=== PATIENT | male | born 1955 | race Caucasian/White ===

== ENCOUNTER → 2019-04-09 | Day surgery (SDC) | payer OTHER ==
[2019-04-04 09:35] LABS: BASOPHILS # (AUTO) 0.1 (0.0-0.1); BASOPHILS % 0.9 % (0.0-1.0); EOSINOPHILS # (AUTO) 0.6 (0.0-0.4); EOSINOPHILS % 9.2 % (0.0-6.0); HEMATOCRIT 41.7 % (38.2-49.6); HEMOGLOBIN 13.4 g/dL (14.0-18.0); MEAN CORPUSCULAR HEMOGLOBIN 29.5 pg (28-32); MEAN CORPUSCULAR HGB CONC 32.1 g/dL (31-35); MEAN CORPUSCULAR VOLUME 91.9 fL (81-99); MONOCYTES # (AUTO) 0.7 (0.2-0.8); MONOCYTES % 10.4 % (4.4-11.3); NEUTROPHILS # (AUTO) 4.2 (2.1-6.9); NEUTROPHILS % 64.2 % (38.7-80.0); PLATELET COUNT 281 x10e3/uL (140-360); RED BLOOD COUNT 4.54 x10e6/uL (4.3-5.7); RED CELL DISTRIBUTION WIDTH 14.9 % (11.7-14.4)
[~2019-04-09] MED LIST: COMBIVENT RESPIM4 GM NEB; FENTANYL CITRATE/PF 100MCG/2 ML INJ ONE; GLUCAGON FOR INJ 1 MG VIAL ONE; HYOSCYAMINE 0.125 MG TAB ONE; MIDAZOLAM HCL 2 MG/2 ML VIAL ONE; PROPOFOL IV EMULSION 10 MG/ML 50 ML VIAL ONE; SIMVASTATIN20 MG PO; SYMBICORT 16010.2 GM INH; VENTOLIN HFA18 GM INH
--- OUTSIDE RECORDS SUMMARY | 2019-04-09 06:11 | XMS REPORT ---
Author [facility] Address Unknown Phone Unavailable Care Team Providers Care Drill Sharpener Name Role Phone Unavailable Unavailable Payers Payer Name Policy Type Policy Number Effective Date Expiration Date Problems This patient has no known problems. Allergies, Adverse Reactions, Alerts Allergy Name Allergy Type Status Severity Reaction(s) Onset Date Inactive Date Treating Clinician Comments cat dander DA Active U 2018-12-04 00:00:00 cat dander DA Active U 2018-06-04 00:00:00 cat dander DA Active U 2018-05-21 00:00:00 No Known Allergies DA Active U 2018-05-20 00:00:00 No Known Allergies DA Active U 2018-04-23 00:00:00 No Known Allergies DA Active U 2017-06-30 00:00:00 Medications This patient has no known medications. Encounters Start Date/Time End Date/Time Encounter Type Admission Type Attending Clinicians Care Facility Care Department Encounter ID 2018-07-11 11:18:00 2018-07-11 11:18:00 Outpatient [id number] Results Test Description Test Time Test Comments Text Results Atomic Results Result Comments [facility] 2018-12-07 16:29:00 RUN DATE: 12/07/18 [facility] PAGE 1 RUN TIME: 1629 Specimen Inquiry RUN USER: INTERFACE PATIENT: LIZA GONZALEZ LOC: MAREK U #: [id number] AGE/SX: 63/M ROOM: MAREK RE12/06/18ANAI DR: Eduardo Hubbard MD : 54 BED: 8 DIS: 12/07/18 STATUS: DIS IN TLOC: SPEC #: [id number] RECD: 12/06/18 STATUS: LATOSHA REQ #: [id number] GRETA: 12/06/18-[address]: Tristan Matamoros MD ENTERED: 12/06/18 SP TYPE: GALLBLADD OTHR DR: Tristan Matamoros MD, Milton E DOORDERED: GROSS COPIES TO: Tristan Matamoros MD [address] [place] [address] Luis Miguel Barroso DO [address] [place] [address] MARKERS: ABNORMAL TISSUE, GALLBLADDER PROCEDURES: GROSS (12/07/18-145) TISSUES: GALLBLADDER, NOS CLINICAL HISTORY COLLECTION DATE: 12/06/2018 CHOLECYSTITIS FINAL DIAGNOSIS Gallbladder, cholecystectomy: CHOLELITHIASIS ACUTE AND CHRONIC CHOLECYSTITIS REACTIVE LYMPH NODE NEGATIVE FOR MALIGNANCY DMW/ A 30244 CONTINUED ON NEXT PAGE RUN DATE: 12/07/18 [facility] PAGE 2 RUN TIME: 1629 Specimen Inquiry RUN USER: INTERFACE SPEC #: [id number] PATIENT: LISALIZA #[id number] (Continued) MACROSCOPIC The specimen is received in formalin, labeled with the patient's name and identified as "gallbladder". It consists of a smooth pink- rawls serosal surface. The specimen measures 5.5 cm in length with a diameter up to 2.5 cm. A 1.6 segment of duct is clamped. A pink-rawls lymph node is present at the neck of the gallbladder. The lumen contains green bile and a single green mixed composition stone measuring 0.7 cm in diameter. The mucosa l surface is rawls and smooth. The gallbladder wall measures up to 0.2 cm in thickness. No nodules or masses are identified. Intelligence Consultant tissue is submitted in a single cassette. GROSS PERFORMED AT [facility] [address] [place] [address] (p)[phone] MICROSCOPIC All of the stains, including any controls performed, stain appropriately. MICROSCOPIC PERFORMED AT [facility] [address] [place] [address] [phone])[phone] PERFORMING SITE Diagnosis performed at: [facility], [address] [address] Signed SIGNATURE ON FILE Anjali George MD 12/07/18 1629 END OF REPORT TROPONIN-I 2018-12-04 14:31:00 TROPONIN-I (test code=TROPI) <0.015 ng/mL 0-0.045 COMMENTS TO TIPPING MACHINE OPERATOR: COLLECT 3 HOURS AFTER PREVIOUS SAMPLE- US ABDOMEN [id number] 09:52:00 Name: LIZA GONZALEZ [facility] : 1955 Age/S: 63 / M [address] Unit #: [id number] Loc: [place] [address] Phys: MarvinSourav Ruel IRWIN Acct: [id number] Dis Date: Status: ADM IN PHONE #: [phone] Exam Date: 12/04/2018 0910 FAX #: [phone] Reason: abd pain/n/v EXAMS: CPT CODE: [id number] US ABDOMEN LTD 89508 REASON FOR EXAM: abd pain/n/v EXAM ORDER DATE: 12/04/2018 7:09 AM Attending Octavio: Sourav Wong DO PROCEDURE: - US ABDOMEN LTD Technique: Grayscale and color Doppler images of the right-upper quadrant of the abdomen. Comparison: CT of the abdomen and pelvis earlier today at 8:12 AM FINDINGS: Aorta and IVC: Visualized portions are within normal limits. Atherosclerotic disease is seen throughout the visualized portions of the aorta. There is an infrarenal ab dominal aortic aneurysm, also seen on the prior CT scan, that measures up to 4.4 x 4.2 cm cross-sectionally on this study. The length of the aneurys mal segment measures 9.7 cm. Liver: Size: 15.9 cm crank hand niocaudally Parenchyma and contour: Smooth contour. Normal echogenicity. Cysts and/or masses: None. Intrahepatic bile ducts: No intra hepatic biliary ductal dilation Common bile duct: 4.6 mm in diamet er. No echogenic filling defects in visualized duct. Gallbl adder: Stones/sludge: Intraluminal stone is present within the neck. Wall: 4.0 mm in thickness. Hyperemic. No discontinuity is seen. Sonogra phic Fry's sign: Positive Portal vein: Portal vein caliber is w ithin normal limits. Portal vein is patent with hepatopetal flow. Pancreas: Not clearly visualized. Right kidney: paren chyma echogenicity: Normal echogenicity PAGE 1 Signed Report (CONTINUED) [facility] 1955 Age/S: 63 / M [address] Unit #: [id number] Loc: [place] [address] Phys: MarvinSourav Ruel IRWIN Acct: [id number] Dis Date: Status: ADM IN PHONE #: [phone] Exam Date: 12/04/2018909 FAX #: [phone] Reason: abd pain/n/v EXAMS: CPT CODE: [id number] ABDOMEN [facility] [address] <Continued> size: 10.3 x 5.5 x 5.1 cm stones: none cysts/masses: none hydronephrosis: none Ascites/pleural effusions: None IMPRESSION: Cholelithiasis with thickened hyperemic gallbladder wall and positive sonographic Fry sign. These findings are consistent with acute calculus cholecystitis. Infrarenal abdominal aortic aneurysm with dimensions as described above. This is also seen on the prior CT scan. One-year follow-up is recommended. at 0952 Reported and signed by: Holden Stanford MD CC: Eduardo Hubbard MD; Luis Miguel Barroso; Sourav Wong DO Technologist: CLARITA THACKER RT(R),MAGALY Trnnhb Date/Time: 12/04/2018 (951) [id number].[email or web address].RR31 Orig Print D/T: S: 12/04/2018 (0955) Probe: PAGE 2 Signed Report [id number] 09:36:00* Test Item Value Reference Range Comments TROPONIN-I (test code=TROPI) <0.015 ng/mL 0-0.045 COMMENTS TO TIPPING MACHINE OPERATOR: COLLECT 3 HOURS AFTER PREVIOUS SAMPLE- CT ABD PELVIS W WO [id number] 08:37:00 Name: LIZA GONZALEZ [facility] : 1955 Age/S: 63 / M [address] [facility] Unit #: [id number] Loc: [place] [address] Phys: Sima Fletcher NP Acct: [id number] Dis Date: Status: ADM IN PHONE #: [phone] Exam Date: 12/04/2018819 FAX #: [phone] Reason: ABDOMINAL PAIN EXAMS: CPT CODE: [id number] CT ABD [place]ELVIS W [place] CONT [address]994 REASON FOR EXAM: ABDOMINAL PAIN EXAM ORDER DATE: 12/04/2018 7:23 AM Ordering M.D.: Sima Fletcher NP PROCEDURE: - CT ABD PELVIS W WO CONT pre and postcontrast axial CT images were acquired through the abdomen/pelvis at 5 mm intervals. Sagittal and coronal reformatted images were generated. Automated exposure control was utilized for this reduction. Phases of contrast: venous and delayed COMPARISON: CT of the chest, abdomen, and pelvis May 21, 2018 FINDINGS: Visualized thorax: There is mild subsegmental atelectasis in the middle lobe and right lower lobe. Visualized cardiac chambers are within normal limits. Hepatobiliary system: Calcified stone measuring 1 cm is s een in the neck of the gallbladder. Trace pericholecystic fluid is present . Pancreas: Normal Spleen: Normal Adre nal glands: Normal Genitourinary system: Prostate gland is enlarge d. Kidneys and ureters and bladder are within normal limits. Gastrointestinal tract and appendix: Stomach and small bowel are within n ormal limits. There is a heavy colonic stool burden. Appendix is not visua lized. No inflammatory changes are seen in the region of the appendix. Abdominal vascular structures: Infrarenal abdominal aortic aneurysm measuring up to 4.4 x 4.1 cm in size. These measurements are minimally larger from the previous CT scan where this aneurysm measured up to 3.9 x 4.1 cm in size although these differences may be due to technique. This aneurysm does not extend into the iliac arteries. There is mural thrombus in this aneurysm. There is atherosclerotic disease seen throughout the rem ainder of the aorta which extends into PAGE 1 Signed Report (CONTINUED) Name: LIZA GONZALEZ [facility] : 1955 Age/S: 63 / M [address] Unit #: [id number] Loc: [place] [address] Phys: Sima lFetcher NP Acct: [id number] Dis Date: Status: ADM IN PHONE #: [phone] Exam Date: 12/04/2018 08 FAX #: [phone] Reason: ABDOMINAL PAIN EXAMS: CPT CODE: [id number] CT ABD PELVIS W WO CONT 01264 <Continued> the iliac arteries. Peritoneum and retroperitoneum: No free fluid or free air. No omental or mesenteric masses. No abnormal lymph nodes. Musculoskeletal structures and abdominal wall: There is disc degeneration at L2-L3 and L4-L5. There is sacralization of the L5 vertebrae. IMPRESSION: Cholelithiasis with trace pericholecystic fluid. Correlate with physical exam for cholecystitis. If clinically warranted an ultrasound can provide further information. Infrarenal abdominal aortic aneurysm with measurements that are minimally larger from the previous exam however these differences may partly be attributed to differences in measurement technique. Follow-up imaging in one year is recommended to assess for changes in size. Prostatomegaly. at 0837 Reported and signed by: Holden Stanford MD CC: Eduardo Hubbard MD; Sima Fletcher FUEL CELL REPAIRER; Luis Miguel Barroso Technologist:Avelino Tian RT(R),(MR),(CT); CTDI: DLP: Trnscb Date/Time: 12/04/2018 (0837) [email or web address] Orig Print D/T: S: 12/04/2018 (0866) PAGE 2 Signed Report BASIC METABOLIC [id number] 06:33:00* Test Item Value Reference Range Comments SODIUM (test code=NA) 139 mmol/L 136-145 POTASSIUM (test code=K) 4.0 mmol/L 3.5-5.1 CHLORIDE (test code=CL) 106.0 mmol/L 98-107 CARBON DIOXIDE (test code=CO2) 25.0 mmol/L 21-32 ANION GAP (test code=GAP) 12.0 10-20 GLUCOSE (test code=GLU) 93 mg/dL 74-106 BLOOD UREA NITROGEN (test code=BUN) 14 mg/dL 7-18 GLOMERULAR FILTRATION RATE (test code=GFR) > 60 mL/min >=60 Estimated GFR by using Modified MDRD formula.Chronic kidney disease is defined as either kidney damageor GFR <60 mL/min/1.73 m2 for >3 months. CREATININE (test code=CREAT) 1.10 mg/dL 0.7-1.3 BUN/CREATININE RATIO (test code=BUN/CREA) 13.2 10-20 CALCIUM (test code=CA) 8.9 mg/dL 8.5-10.1 HEPATIC FUNCTION [id number] 06:33:00* Test Item Value Reference Range Comments TOTAL PROTEIN (test code=PROT) 7.5 gram/dL 6.4-8.2 ALBUMIN (test code=ALB) 3.5 g/dL 3.4-5.0 GLOBULIN (test code=GLOB) 4.0 gram/dL 2.7-4.2 ALBUMIN/GLOBULIN RATIO (test code=A/G) 0.9 0.75-1.50 BILIRUBIN TOTAL (test code=BILT) 0.30 mg/dL 0.0-1.0 BILIRUBIN DIRECT (test code=BILD) 0.12 mg/dL 0.0-0.20 SGOT/AST (test code=AST) 15 IUnit/L 15-37 SGPT/ALT (test code=ALT) 14 IUnit/L 12-78 ALKALINE PHOSPHATASE TOTAL (test code=ALKP) 91 IUnit/L 45-117 Note change in reference range due to change in reagent. [id number] 06:33:00* Test Item Value Reference Range Comments LIPASE (test code=LIP) 165 U/L 73.0-393.0 [id number] 06:33:00* Test Item Value Reference Range Comments TROPONIN-I (test code=TROPI) <0.015 ng/mL 0-0.045 BASIC METABOLIC [id number] 06:19:00* Test Item Value Reference Range Comments SODIUM (test code=NA) 139 mmol/L 136-145 POTASSIUM (test code=K) 4.0 mmol/L 3.5-5.1 CHLORIDE (test code=CL) 106.0 mmol/L 98-107 CARBON DIOXIDE (test code=CO2) mmol/L 21-32 ANION GAP (test code=GAP) 10-20 GLUCOSE (test code=GLU) mg/dL 74-106 BLOOD UREA NITROGEN (test code=BUN) mg/dL 7-18 GLOMERULAR FILTRATION RATE (test code=GFR) mL/min >=60 CREATININE (test code=CREAT) mg/dL 0.7-1.3 BUN/CREATININE RATIO (test code=BUN/CREA) 10-20 CALCIUM (test code=CA) mg/dL 8.5-10.1 HEPATIC FUNCTION [id number] 06:19:00* Test Item Value Reference Range Comments TOTAL PROTEIN (test code=PROT) gram/dL 6.4-8.2 ALBUMIN (test code=ALB) g/dL 3.4-5.0 GLOBULIN (test code=GLOB) gram/dL 2.7-4.2 ALBUMIN/GLOBULIN RATIO (test code=A/G) 0.75-1.50 BILIRUBIN TOTAL (test code=BILT) mg/dL 0.0-1.0 BILIRUBIN DIRECT (test code=BILD) mg/dL 0.0-0.20 SGOT/AST (test code=AST) IUnit/L 15-37 SGPT/ALT (test code=ALT) IUnit/L 12-78 ALKALINE PHOSPHATASE TOTAL (test code=ALKP) IUnit/L 45-117 [id number] 06:19:00* Test Item Value Reference Range Comments LIPASE (test code=LIP) U/L 73.0-393.0 [id number] 06:19:00* Test Item Value Reference Range Comments TROPONIN-I (test code=TROPI) ng/mL 0-0.045 CBC W/O [id number] 06:16:00* Test Item Value Reference Range Comments WHITE BLOOD CELL (test code=WBC) 9.2 K/mm3 4.5-12.5 RED BLOOD CELL (test code=RBC) 4.20 mill/mm3 4.0-5.8 HEMOGLOBIN (test code=HGB) 12.6 gram/dL 13.0-17.5 HEMATOCRIT (test code=HCT) 38.4 % 42.0-52.0 MEAN CELL VOLUME (test code=MCV) 91.4 fL 80-98 MEAN CELL HGB (test code=MCH) 30.0 picogram 27.0-33.0 MEAN CELL HGB CONCETRATION (test code=MCHC) 32.8 gram/dL 33.0-36.0 RED CELL DISTRIBUTION WIDTH (test code=RDW) 15.3 % 11.6-16.2 PLATELET COUNT (test code=PLT) 262 K/mm3 150-450 MEAN PLATELET VOLUME (test code=MPV) 8.5 fL 6.7-11.0 B-TYPE NATRIURETIC [id number] 21:18:00* Test Item Value Reference Range Comments B-TYPE NATRIURETIC PEPTIDE (test code=BNP) 15.32 pgram/mL 0-100 BASIC METABOLIC [id number] 21:11:00* Test Item Value Reference Range Comments SODIUM (test code=NA) 136 mmol/L 136-145 POTASSIUM (test code=K) 4.3 mmol/L 3.5-5.1 CHLORIDE (test code=CL) 104.0 mmol/L 98-107 CARBON DIOXIDE (test code=CO2) 26.0 mmol/L 21-32 ANION GAP (test code=GAP) 10.3 10-20 GLUCOSE (test code=GLU) 87 mg/dL 74-106 BLOOD UREA NITROGEN (test code=BUN) 26 mg/dL 7-18 GLOMERULAR FILTRATION RATE (test code=GFR) > 60 mL/min >=60 Estimated GFR by using Modified MDRD formula.Chronic kidney disease is defined as either kidney damageor GFR <60 mL/min/1.73 m2 for >3 months. CREATININE (test code=CREAT) 1.00 mg/dL 0.7-1.3 BUN/CREATININE RATIO (test code=BUN/CREA) 26.0 10-20 CALCIUM (test code=CA) 9.2 mg/dL 8.5-10.1 [id number] 21:11:00* Test Item Value Reference Range Comments TROPONIN-I (test code=TROPI) <0.015 ng/mL 0-0.045 - XR CHEST 1 [id number] 21:05:00 FAX: Luis Miguel Marcial [phone] [place]: St: REG FAX: Bruno Guevara MD [phone] Name: LIZA GONZALEZ [facility] : 1955 Age/S: 62/M [address] [facility] Unit #: [id number] Loc: [place] [address] Phys: Bruno Guevara MD Acct: [id number] Dis Date: Status: REG ER PHONE #: [phone] Exam Date: 06/04/20182050 FAX #: [phone] Reason: Shortness of Breath EXAMS: CPT CODE: [id number] XR CHEST 1 V 36835 REASON FOR EXAM: Shortness of Breath EXAM ORDER DATE: 06/04/2018 8:22 PM Ordering M.Hamilton.: Bruno Guevara MD PROCEDURE: - XR CHEST 1 V COMPARISON: 05/20/2018 FINDINGS: Portable AP frontal view of the chest obtained at 8:47 PM shows clear lungs without evidence of consolidation. There is no evidence of effusion. The heart size is within normal limits. Pulmonary vasculatures are unremarkable. Stable appearance of the right lateral 8th rib fracture IMPRESSION: Hyperinflated lungs suggestive of COPD at 210 Reported and signed by: Lincoln Torres M.D. CC: Luis Miguel Barroso; Bruno Guevara MD Technologist: Lupe Layne Trnscrd Date/Time/By: 06/04/2018 (2104) : By: KrishanVTL Orig Print D/T: S: 06/04/2018 (2107) PAGE 1 Signed Report BASIC METABOLIC [id number] 21:00:00* Test Item Value Reference Range Comments SODIUM (test code=NA) 136 mmol/L 136-145 POTASSIUM (test code=K) 4.3 mmol/L 3.5-5.1 CHLORIDE (test code=CL) 104.0 mmol/L 98-107 CARBON DIOXIDE (test code=CO2) mmol/L 21-32 ANION GAP (test code=GAP) 10-20 GLUCOSE (test code=GLU) mg/dL 74-106 BLOOD UREA NITROGEN (test code=BUN) mg/dL 7-18 GLOMERULAR FILTRATION RATE (test code=GFR) mL/min >=60 CREATININE (test code=CREAT) mg/dL 0.7-1.3 BUN/CREATININE RATIO (test code=BUN/CREA) 10-20 CALCIUM (test code=CA) mg/dL 8.5-10.1 [id number] 21:00:00* Test Item Value Reference Range Comments TROPONIN-I (test code=TROPI) ng/mL 0-0.045 CBC W/O [id number] 20:52:00* Test Item Value Reference Range Comments WHITE BLOOD CELL (test code=WBC) 10.8 K/mm3 4.5-12.5 RED BLOOD CELL (test code=RBC) 3.87 mill/mm3 4.0-5.8 HEMOGLOBIN (test code=HGB) 12.1 gram/dL 13.0-17.5 HEMATOCRIT (test code=HCT) 37.1 % 42.0-52.0 MEAN CELL VOLUME (test code=MCV) 95.9 fL 80-98 MEAN CELL HGB (test code=MCH) 31.3 picogram 27.0-33.0 MEAN CELL HGB CONCETRATION (test code=MCHC) 32.6 gram/dL 33.0-36.0 RED CELL DISTRIBUTION WIDTH (test code=RDW) 14.4 % 11.6-16.2 PLATELET COUNT (test code=PLT) 224 K/mm3 150-450 MEAN PLATELET VOLUME (test code=MPV) 8.2 fL 6.7-11.0 [id number] 16:10:00 RUN DATE: 05/25/18 [place] [facility] PAGE 1 RUN TIME: 1610 Specimen Inqui ry RUN USER: INTERFACE PATIENT: LIZA GONZALEZ ACCT #: [id number] LOC: [place] U #: [id number] AGE/SX: 62/M ROOM: [facility] RE05/24/18ANAI DR: Em Mills : [birth year] BED: A DIS: 03/14/19 STATUS: DIS IN TLOC: SPEC #: [id number] RECD: 05/24/18 STATUS: LATOSHA BAIRES #: [id number] [place]: 05/24/[address] [facility] [address]: Will Bah MD ENTERED: 05/24/18 SP TYPE: ESOPHAGUS OTHR DR: Winston Bragg i, MD, Milton E DOORDERED: GROSS COPIES TO: Will Bah MD [address] [place] [address] Winston Welsh MD [address] [place] [address] Luis Miguel Barroso DO [address] [place], [place] [id number] PROCEDURES: GROSS (05/25/18) TISSUES: 1. ESOPHAGUS, NOS - BRUSHING 4 SLIDES 2. GASTRIC CORPUS - BX CLINICAL HISTORY COLLECTION DATE: 05/24/2018 ABDOMI NAL PAIN POST-OP DIAGNOSIS: CRISTIAN FINAL DIAGNOSIS Esophageal brus kody, cytology: NEGATIVE FOR MALIGNANCY INCREASED ACUTE INFLAMMATO RY CELLS, PSEUDOHYPHAL STRUCTURES AND YEAST FORMS COMPATIBLE WITH PRABHU DA SPECIES (GMS CONTROL POSITIVE) BENIGN EPITHELIAL CELLS PRESENT G astric tissue, biopsy: REACTIVE GASTROPATHY NO ACUTE INFLAMMATORY INFILTRATE PRESENT NO AREAS OF MUCOSAL EROSION/ULCERATION CONTINUED ON NEXT PAGE RUN DATE: 05/25/18 [facility] PAGE 2 RUN TIME: 1 610 Specimen Inquiry RUN USER: INT CIERA SPE C #: [id number] PATIENT: LIZA GONZALEZ #[id number] (C ontinued) FINAL DIAGNOSIS (Continued) NEGA TIVE FOR INTESTINAL METAPLASIA NEGATIVE FOR HELICOBACTER ORGANISMS NEGATIVE FOR MALIGNANCY RRB/shalom D 93489, 67032, 2)60514 MACROSCOPIC Specimen (1) consists of four slides for processing and evaluat ion as (1). Two slides will be routinely stained and two slides will be stain ed with GMS. Specimen (2) is received in formalin, labeled with the dar ent's name, identified as "gastric", and consists of rawls biopsy tissue measuri ng 0.3 cm in aggregate, submitted as (2) for H E and giemsa stains. STEPHANE S PERFORMED AT [facility] [address] [place] [address] [phone] [facility] All of the stains, including any controls performed, stain appropriately . MICROSCOPIC PERFORMED AT [facility] [address] [place] [address] [phone])[phone] PER FORMING SITE Diagnosis performed at: [facility] [address] [place] [address] ----- ------- Signed SIGNATURE ON FILE Ralph Schuster MD 05/12 06/30 1610 END OF REPORT - XR SWCYNDEE LUDWIG W/C [id number] 13:50:00 FAX: Freya Phelps MD [phone] [place]: B St: ADM FAX: Luis Miguel Marcial [phone] FAX: Hu Pepper [phone] Name: LIZA GONZALEZ [facility] : 1955 Age/S: 62/M [address] Unit #: [id number] Loc: V.3030 [place] [address] Phys: Hu Pepper NP Acct: [id number] Dis Date: Status: ADM IN PH ONE #: [phone] Exam Date: 05/23/2018 1252 FAX #: [phone] Reason: ASSESS SWALLOW EXAMS: CPT CODE: [id number] XR SWLW FUN W/C V 71095 REASON FOR EXAM: ASSESS SWALLOW EXAM ORDER DATE: 05/23/2018 12:00 AM Attending Octavio: Hu Pepper NP PROCEDURE: Barium swallow FINDINGS: The exam was performed to assist the speech pat hologist in performing the barium swallow exam for assessment of aspiratio n, penetration, and function and motility of the oropharynx. The patient was giving teaspoon, cup, straw of thin liquid, teaspoon, cup, straw of thick liquid, puree, mechanical soft food coated with barium and reg ular food coated with barium to swallow. Fluoroscopic time:51 se c Fluoroscopic dose:2.2 mGy Number of images obtained: 11 IMPRESSION: No evidence of penetration or aspiration. Please see the speech pathologist report. at 7933 Reported and signed by: Lincoln Torres M.D. CC: Freya Boss MD; Luis Miguel Barroso; Sabine Pepper NP Technologist: Amie BARBA(Norma) Trn scrd Date/Time/By: 05/23/2018 (9394) : By: KrishanVTL Orig Print D/T: S : 05/23/2018 (8826) PAGE 1 Signed Report [id number] 11:51:00* Test Item Value Reference Range Comments TROPONIN-I (test code=TROPI) <0.015 ng/mL 0-0.045 COMMENTS TO TIPPING MACHINE OPERATOR: COLLECT 3 HOURS AFTER PREVIOUS [id number] 09:56:00* Test Item Value Reference Range Comments TROPONIN-I (test code=TROPI) <0.015 ng/mL 0-0.045 COMMENTS TO TIPPING MACHINE OPERATOR: COLLECT 3 HOURS AFTER PREVIOUS [id number] 03:31:00* Test Item Value Reference Range Comments TROPONIN-I (test code=TROPI) <0.015 ng/mL 0-0.045 [id number] 03:31:00* Test Item Value Reference Range Comments TROPONIN-I (test code=TROPI) <0.015 ng/mL 0-0.045 Specimen 4+ Hemolysed.Some results MAY NOT be accurate due to hemolysis. - CT CHEST [id number] 01:23:00 Name: LIZA GONZALEZ [facility] : 1955 Age/S: 62 / M [address] Unit #: [id number] Loc: [place] [address] Phys: Bruno Guevara MD Acct: [id number] Dis Date: Status: REG ER PHONE #: [phone] Exam Date: 05/21/2018 0100 FAX #: [phone] Reason: sob EXAMS: CPT CODE: [id number] CT CHEST W/CONTRAST 94190 HISTORY: Vomiting COMPARISON:Prior CT chest dated 06/28/2017. TECHNIQUE: Axial tomograms through the chest, abdomen and pelvis were obtained after intravenous contrast. One or more of the following dose reduction techniques were used: Automated exposure control, adjustment of the mA and/or kV according to patient size, and/or utilization of iterative reconstruction technique. FINDINGS: CT chest: Aortic calcifications are present. The ascending aorta measures up to 4 cm in maximal AP dimension similar to prior exam. Severe emphysema is demonstrated. No pulmonary artery filling defect demonstrated to suggest pulmonary embolus. Irregular spiculated right suprahilar mass seen on prior study is no longer demonstrated. There is scarring noted in this region. Patchy opacities of the right lateral lung base. No significant effusion. Small pericardial effusion is present. No other acute findings within the chest. CT abdomen and pelvis: Liver: The liver is relatively homogeneous in appearance with no discrete liver lesion demonstrated. Spleen: No significant splenomegaly. No focal splenic lesion. Pancreas: No focal mass or significant peripanc reatic stranding or fluid collection. Adrenals: Normal in ap pearance with no mass identified. Kidneys: No hydronephrosis. No solid renal mass. Gallstones are demonstrated within the gallbladd er. Infrarenal abdominal aortic aneurysm is demonstrated measuring up to 3.7 cm in maximal AP dimension. No abdominal fluid collection or adenopathy is demonstrated. PAGE 1 Signed Report (CONTINUED) Name: LIZA GONZALEZ [facility] : 1955 Age/S: 62 / M [address] Unit #: [id number] Loc: [place] [address] 4 Phys: Bruno Guevara MD Acct: [id number] Dis Date: Status: REG ER PHONE #: [phone] Exam Date: 05/21/201899 FAX #: [phone] Reason: sob EXAMS: CPT CODE: [id number] CT CHEST W/CONTRAST 29357 < Continued> Within the pelvis no fluid collection or pelvic adenopathy. No acute inflammatory process. The appendix is normal in appearance. No evidence of bowel obstruction. No free air or abscess. IMPRESSION: 1. Dilatation of the ascending aorta unchanged from prior exam. 2. Aortic and coronary calcifications. 3. Extensive emphysema. Spiculated lesion in the right suprahilar region is no longer visualized. There is scarring noted in this region. 4. Minimal reticulonodular opacity demonstrated in the extreme right lateral lung base. Mild pneumonitis is suspected. 5. Infrarenal abdominal aortic aneurysm measuring up to 3.7 cm. 6. Cholelithiasis. 7. Normal appendix. No evidence of bowel obstruction. No other acute abnormalities. at 0123 Reported and signed by: Mirza Hall MD CC: Bruno Guevara MD Technologist:Winston Betancourt RT(R)(CT) CTDI: DLP: Trnscb Date/Time: 05/21/2018 (0123) t.[email or web address] Orig Print D/T: S: 05/21/2018 (0126) CTDI: DLP: PAGE 2 Signed Report - CT ABD PELVIS W/[id number] 01:23:00 Name: LIZA GONZALEZ [facility] : 1955 Age/S: 62 / M [address] [facility] Unit #: [id number] Loc: [place] [address] Phys: John Guevara MD Acct: [id number] Di s Date: Status: REG ER PHONE #: [phone] Exam Date: 05/21/201899 FAX #: Reason: vomiting afer eating EXAMS: CPT CODE: [id number] CT ABD PELVIS W/CONT [id number] HISTORY: Vomiting COMPARISON:Prior CT chest dated 06/28/2017. TECHNIQUE: Axial tomograms through the chest, abdomen and pelvis were obtained after intravenous contrast. One or more of the following dose reduction techniques were used: Automated exposure control, adjustment of the mA and/or kV according to patient size, and/or utilization of iterative ibeth nstruction technique. FINDINGS: CT chest: Aortic calcifications are present. The ascending aorta sujey ures up to 4 cm in maximal AP dimension similar to prior exam. Severe emp hysema is demonstrated. No pulmonary artery filling defect demonstrated t o suggest pulmonary embolus. Irregular spiculated right suprahilar mass s een on prior study is no longer demonstrated. There is scarring noted in this region. Patchy opacities of the right lateral lung base. No signifi cant effusion. Small pericardial effusion is present. No other acute fin dings within the chest. CT abdomen and pelvis: Liver : The liver is relatively homogeneous in appearance with no discrete liver lesion demonstrated. Spleen: No significant splenomegaly. No foc al splenic lesion. Pancreas: No focal mass or significant peripanc reatic stranding or fluid collection. Adrenals: Normal in ap pearance with no mass identified. Kidneys: No hydronephrosis. No solid renal mass. Gallstones are demonstrated within the gallbladd er. Infrarenal abdominal aortic aneurysm is demonstrated measuring up to 3.7 cm in maximal AP dimension. No abdominal fluid collection or adenopathy is demonstrated. PAGE 1 Signed Report (CONTINUED) Name: LIZA GONZALEZ [facility] : 1955 Age/S: 62 / M [address] [facility] Unit #: [id number] Loc: [place], [place] [address] Phys: Bruno Guevara MD Acct: [id number] Dis Date: Status: REG ER PHONE #: [phone] Exam Date: 05/21/2018 0100 FAX #: [phone] Reason: vomiting afer eating EXAMS: CPT CODE: [id number] CT ABD PELVIS W/CONT 39717 < Continued> Within the pelvis no fluid collection or pelvic adenopathy. No acute inflammatory process. The appendix is normal in appearance. No evidence of bowel obstruction. No free air or abscess. IMPRESSION: 1. Dilatation of the ascending aorta unchanged from prior exam. 2. Aortic and coronary calcifications. 3. Extensive emphysema. Spiculated lesion in the right suprahilar region is no longer visualized. There is scarring noted in this region. 4. Minimal reticulonodular opacity demonstrated in the extreme right lateral lung base. Mild pneumonitis is suspected. 5. Infrarenal abdominal aortic aneurysm measuring up to 3.7 cm. 6. Cholelithiasis. 7. Normal appendix. No evidence of bowel obstruction. No other acute abnormalities. at 0123 Reported and signed by: Mirza Hall MD CC: Bruno Guevara MD Technologist:Winston Betancourt, RT(R)(CT) CTDI: DLP: Trnscb Date/Time: 05/21/2018 (0123) [email or web address] Orig Print D/T: S: 05/21/2018 (0126) CTDI: DLP: PAGE 2 Signed Report B-TYPE NATRIURETIC [id number] 23:27:00* Test Item Value Reference Range Comments B-TYPE NATRIURETIC PEPTIDE (test code=BNP) 17.68 pgram/mL 0-100 BASIC METABOLIC [id number] 23:01:00* Test Item Value Reference Range Comments SODIUM (test code=NA) 138 mmol/L 136-145 POTASSIUM (test code=K) 3.9 mmol/L 3.5-5.1 CHLORIDE (test code=CL) 104.0 mmol/L 98-107 CARBON DIOXIDE (test code=CO2) 28.0 mmol/L 21-32 ANION GAP (test code=GAP) 9.9 10-20 GLUCOSE (test code=GLU) 132 mg/dL 74-106 BLOOD UREA NITROGEN (test code=BUN) 10 mg/dL 7-18 GLOMERULAR FILTRATION RATE (test code=GFR) > 60 mL/min >=60 Estimated GFR by using Modified MDRD formula.Chronic kidney disease is defined as either kidney damageor GFR <60 mL/min/1.73 m2 for >3 months. CREATININE (test code=CREAT) 0.90 mg/dL 0.7-1.3 BUN/CREATININE RATIO (test code=BUN/CREA) 11.1 10-20 CALCIUM (test code=CA) 9.1 mg/dL 8.5-10.1 [id number] 23:01:00* Test Item Value Reference Range Comments TROPONIN-I (test code=TROPI) <0.015 ng/mL 0-0.045 HEPATIC FUNCTION [id number] 23:01:00* Test Item Value Reference Range Comments TOTAL PROTEIN (test code=PROT) 7.1 gram/dL 6.4-8.2 ALBUMIN (test code=ALB) 3.2 g/dL 3.4-5.0 GLOBULIN (test code=GLOB) 3.9 gram/dL 2.7-4.2 ALBUMIN/GLOBULIN RATIO (test code=A/G) 0.8 0.75-1.50 BILIRUBIN TOTAL (test code=BILT) 0.30 mg/dL 0.0-1.0 BILIRUBIN DIRECT (test code=BILD) 0.12 mg/dL 0.0-0.20 SGOT/AST (test code=AST) 17 IUnit/L 15-37 SGPT/ALT (test code=ALT) 14 IUnit/L 12-78 ALKALINE PHOSPHATASE TOTAL (test code=ALKP) 93 IUnit/L 45-117 Note change in reference range due to change in reagent. [id number] 23:01:00* Test Item Value Reference Range Comments LIPASE (test code=LIP) 226 U/L 73.0-393.0 BASIC METABOLIC [id number] 22:44:00* Test Item Value Reference Range Comments SODIUM (test code=NA) 138 mmol/L 136-145 POTASSIUM (test code=K) 3.9 mmol/L 3.5-5.1 CHLORIDE (test code=CL) 104.0 mmol/L 98-107 CARBON DIOXIDE (test code=CO2) mmol/L 21-32 ANION GAP (test code=GAP) 10-20 GLUCOSE (test code=GLU) mg/dL 74-106 BLOOD UREA NITROGEN (test code=BUN) mg/dL 7-18 GLOMERULAR FILTRATION RATE (test code=GFR) mL/min >=60 CREATININE (test code=CREAT) mg/dL 0.7-1.3 BUN/CREATININE RATIO (test code=BUN/CREA) 10-20 CALCIUM (test code=CA) mg/dL 8.5-10.1 [id number] 22:44:00* Test Item Value Reference Range Comments TROPONIN-I (test code=TROPI) ng/mL 0-0.045 - XR CHEST 1 [id number] 22:37:00 FAX: Bruno Guevara MD [phone] [place]: St: PRE Name: LIZA CHRISTIANSON [facility] : [birth year] Age/S: 62/M [address] [facility] Unit #: [id number] Loc: [place] [address] Phys: Bruno Guevara MD Acct: [id number] Dis Date: Status: PRE ER PHONE #: [phone] Exam Date: 05/20/20182234 FAX #: [phone] Reason: Shortness of Breath EXAMS: CPT CODE: [id number] XR CHEST 1 V 60762 HISTORY: Shortness of Breath TECHNIQUE: AP chest x-ray COMPARISON: 06/30/17 FINDINGS: No airspace consolidation or pleural effusion. Pulmonary hyperinflation and emphysema. Normal heart size. Atherosclerotic vascular calcification of the thoracic aorta. Visualized osseous structur es are grossly intact. IMPRESSION: No acute fi ndings or significant interval change. Electronically Sign ed by Monae Muñoz D.O. on 05/20/2018 at 2237 Reported and signed by: Monae Muñoz D.O. CC: Bruno Guevara MD Technologist: WINTER SPEARS RT(R) Trnscrd Date/Time/By: 05/20/2018 (9809) : By: [email or web address] Orig Print D/T: S: 05/20/2018 (2614) PAGE 1 Signed Report CBC W/O [id number] 22:23:00* Test Item Value Reference Range Comments WHITE BLOOD CELL (test code=WBC) 8.6 K/mm3 4.5-12.5 RED BLOOD CELL (test code=RBC) 3.84 mill/mm3 4.0-5.8 HEMOGLOBIN (test code=HGB) 12.1 gram/dL 13.0-17.5 HEMATOCRIT (test code=HCT) 38.0 % 42.0-52.0 MEAN CELL VOLUME (test code=MCV) 99.0 fL 80-98 MEAN CELL HGB (test code=MCH) 31.5 picogram 27.0-33.0 MEAN CELL HGB CONCETRATION (test code=MCHC) 31.8 gram/dL 33.0-36.0 RED CELL DISTRIBUTION WIDTH (test code=RDW) 13.3 % 11.6-16.2 PLATELET COUNT (test code=PLT) 253 K/mm3 150-450 MEAN PLATELET VOLUME (test code=MPV) 8.8 fL 6.7-11.0 - XR RIBS UNI W/CXR 3+V [id number] 21:45:00 FAX: Shraddha Tamez DO [place]: B St: REG FAX: Nelson Perez NP [phone] Name: LIZA GONZALEZ [facility] : 1955 Age/S: 62/M [address] [facility] Unit #: [id number] Loc: [place] [address] Phys: Nelson Perez NP Acct: [id number] Dis Date: Status: REG ER PHONE #: [phone] Exam Date: 04/23/20182126 FAX #: [phone] Reason: RIB PAIN EXAMS: CPT CODE: [id number] XR RIBS UNI W/CXR 3+[place] [address] EXAM: Right-sided rib series, 5 views; INFORMATION: Trauma, rib pain; IMPRESSION: 1. There is a slightly displaced, acute fracture of the lateral aspect of the 7th rib on the ri ght and there is an older fracture of the 8th rib on the right, with renetta unique formation. 2. No evidence of pneumothorax or pulmonary contusion. at 2145 Reported and signed by: Eric Mendoza M.D. CC: Nu Tamez DO; Nelson Perez NP Technologist: Mohit BLACKMON) Trnscrd Date/Time/By: 04/23/2018 (2144) : By: [email or web address] Orig Print D/T: S: 04/23/2018 (2148) PAGE 1 Signed Report
--- NOTE | 2019-04-09 07:10 | NUR ---
SPIRITUAL CARE - Pre-Surgery Assessment: Pt in bed. Pt reported supportive attention from family and friends. Intervention: I provided pastoral presence, hospitality, and sympathetic listening. I acquainted pt with availability of memory care program director while hospitalized. Outcome: Pt expressed appreciation for visit. No need for follow up indicated at this time. KILEY Fieldslain Spiritual Care Department O: [phone] Pager: [phone] ([phone] + number calling from)
[2019-04-09 09:30] VITALS: BP 116/70
--- NOTE | 2019-04-09 12:32 | Operative Report ---
DATE OF PROCEDURE: 04/09/2019 SURGEON: Ruslan Nicole MD PROCEDURE: Colonoscopy with polypectomy. INDICATIONS FOR COLONOSCOPY: Colorectal cancer screening. MEDICATIONS: The patient was done under MAC, please see anesthesiologist's note. PROCEDURE IN DETAIL: With the patient in the left lateral decubitus position, a flexible fiberoptic Olympus colonoscope was inserted into the rectum with ease and advanced all the way to the cecum. It was then withdrawn slowly, mucosa overlying the cecum, ascending colon, and transverse colon appeared to be within normal limits. Two polyps were removed per snare electrocautery from the descending colon with the largest approximately 1.2 cm in size and polypectomy site was hemoclipped x1. One polyp was removed per snare electrocautery from the sigmoid colon and one polyp was removed per hot biopsy from the rectum. The scope was then retroflexed into the distal rectum and small internal hemorrhoids were noted, none of which was actively bleeding. The scope was then straightened out, it was subsequently withdrawn, and the patient tolerated the procedure well. IMPRESSION: 1. Descending colon polyps x2 with the largest approximately 1.2 cm, removed per snare electrocautery and one polypectomy site was hemoclipped x1. 2. Sigmoid colon polyp, removed per snare electrocautery. 3. Rectal polyp, removed per hot biopsy forceps. 4. Internal hemorrhoids, none actively bleeding. PLAN: Follow up histology. Initiate high-fiber, low-fat diet. Initiate high-fiber supplement. The patient might need a followup colonoscopy in 3 years. Ruslan Nicole MD [facility] [place] /[id number] cc: Jevon Barroso DO
== END | disposition home or self-care (01) ==
LOC: OR 05:54
PROVIDERS: ATTEND Internal Medicine Gastroenterology
DX: Z12.11 Encounter for screening for malignant neoplasm of colon (principal); D12.4 Benign neoplasm of descending colon; K62.1 Rectal polyp; K64.8 Other hemorrhoids; J44.9 Chronic obstructive pulmonary disease, unspecified; F17.210 Nicotine dependence, cigarettes, uncomplicated; Z01.810 Encounter for preprocedural cardiovascular examination; Z01.812 Encounter for preprocedural laboratory examination; Z85.118 Personal history of other malignant neoplasm of bronchus and lung; Z92.21 Personal history of antineoplastic chemotherapy; Z92.3 Personal history of irradiation
CPT/HCPCS: 36415; 45384; 45385; 85025; 93005; J1610; J2250; J2704; J3010; 45378

== ENCOUNTER → 2022-07-12 | Day surgery (SDC) | payer OTHER ==
[2022-07-02 14:08] LABS: BASOPHILS % 0.1 % (0.0-1.0); HEMATOCRIT 33.9 % (38.2-49.6); HEMOGLOBIN 11.2 g/dL (14.0-18.0); LYMPHOCYTES # (AUTO) 0.4 (1.0-3.2); LYMPHOCYTES % 2.3 % (18.0-39.1); MEAN CORPUSCULAR HEMOGLOBIN 28.3 pg (28-32); MEAN CORPUSCULAR VOLUME 85.6 fL (81-99); MONOCYTES # (AUTO) 0.5 (0.2-0.8); MONOCYTES % 2.6 % (4.4-11.3); NEUTROPHILS # (AUTO) 16.9 (2.1-6.9); NEUTROPHILS % 94.5 % (38.7-80.0); PLATELET COUNT 354 x10e3/uL (140-360); RED BLOOD COUNT 3.96 x10e6/uL (4.3-5.7); RED CELL DISTRIBUTION WIDTH 16.7 % (11.7-14.4)
[~2022-07-12] MED LIST changes: +ASPIRIN81 MG PO; +ATORVASTATIN CA10 MG PO; +CLOPIDOGREL75 MG PO; +COMBIVENT RESPIM4 GM IH; +FLUCONAZOLE 200 MG/100 ML 100 ML IV ONE; +FLUCONAZOLE 200 MG/100 ML IV ONE; -GLUCAGON FOR INJ 1 MG VIAL ONE; -HYOSCYAMINE 0.125 MG TAB ONE; +HYOSCYAMINE SULFATE 0.5 MG/ML INJ ONE; +IPRAT-ALBUT 0.5-3 ML; +LACTATED RINGER'S 1,000 ML ONE; +LIDOCAINE HCL 2% LOCAL INJ 5 ML SDV VIAL INJ ONE; +LISINOPRIL5 MG PO; +METOPROLOL SUCC50 MG PO; +PROPOFOL IV EMULSION 10 MG/ML 20 ML VIAL ONE; -PROPOFOL IV EMULSION 10 MG/ML 50 ML VIAL ONE; +PROPOFOL IV EMULSION 50 ML IV ONE
[2022-07-12 13:35] VITALS: BP 151/87
== END | disposition home or self-care (01) ==
LOC: OR 09:33
PROVIDERS: ATTEND Internal Medicine Gastroenterology
DX: K22.2 Esophageal obstruction (principal); Z86.010 Personal history of colon polyps; K29.70 Gastritis, unspecified, without bleeding; B37.81 Candidal esophagitis; K44.9 Diaphragmatic hernia without obstruction or gangrene; K59.00 Constipation, unspecified; K59.09 Other constipation; K64.8 Other hemorrhoids; Z71.3 Dietary counseling and surveillance; C34.90 Malignant neoplasm of unspecified part of unspecified bronchus or lung; R63.4 Abnormal weight loss; J44.9 Chronic obstructive pulmonary disease, unspecified; I25.10 Atherosclerotic heart disease of native coronary artery without angina pectoris; Z71.89 Other specified counseling; F17.210 Nicotine dependence, cigarettes, uncomplicated; Z71.6 Tobacco abuse counseling; E78.00 Pure hypercholesterolemia, unspecified; Z01.810 Encounter for preprocedural cardiovascular examination; Z79.82 Long term (current) use of aspirin; Z79.899 Other long term (current) drug therapy; Z95.5 Presence of coronary angioplasty implant and graft; Z92.3 Personal history of irradiation; Z92.21 Personal history of antineoplastic chemotherapy
CPT/HCPCS: 36415; 43239; 43248; 45378; 85025; C9113; J1450; J1980; J2001; J2250; J2704 ×2; J3010; J7121

== ENCOUNTER → 2022-08-11 | Day surgery (SDC) | payer OTHER ==
[2022-08-05 11:53] LABS: BASOPHILS # (AUTO) 0.1 (0.0-0.1); BASOPHILS % 1.1 % (0.0-1.0); EOSINOPHILS # (AUTO) 0.5 (0.0-0.4); HEMATOCRIT 36.8 % (38.2-49.6); HEMOGLOBIN 11.8 g/dL (14.0-18.0); LYMPHOCYTES # (AUTO) 1.3 (1.0-3.2); MEAN CORPUSCULAR HEMOGLOBIN 27.8 pg (28-32); MEAN CORPUSCULAR HGB CONC 32.1 g/dL (31-35); MEAN CORPUSCULAR VOLUME 86.8 fL (81-99); MONOCYTES # (AUTO) 0.8 (0.2-0.8); MONOCYTES % 9.7 % (4.4-11.3); NEUTROPHILS # (AUTO) 5.7 (2.1-6.9); PLATELET COUNT 324 x10e3/uL (140-360); RED BLOOD COUNT 4.24 x10e6/uL (4.3-5.7); RED CELL DISTRIBUTION WIDTH 16.2 % (11.7-14.4)
[~2022-08-11] MED LIST changes: +BENZOCAINE/TETRACAINE/BUTAMBEN AERO SPRAY 56 GM CAN ONE; -FLUCONAZOLE 200 MG/100 ML 100 ML IV ONE; -FLUCONAZOLE 200 MG/100 ML IV ONE; -HYOSCYAMINE SULFATE 0.5 MG/ML INJ ONE; -MIDAZOLAM HCL 2 MG/2 ML VIAL ONE; -PROPOFOL IV EMULSION 50 ML IV ONE; +PROTONIX20 MG PO
[2022-08-11 08:06] VITALS: TEMP 98.3
[2022-08-11 08:35] VITALS: BP 132/88; PULSE 71; RESP 16; O2SAT 98
== END | disposition home or self-care (01) ==
LOC: ENDO 05:10
PROVIDERS: ATTEND Internal Medicine Gastroenterology
DX: K22.2 Esophageal obstruction (principal); K29.70 Gastritis, unspecified, without bleeding; K44.9 Diaphragmatic hernia without obstruction or gangrene; D12.4 Benign neoplasm of descending colon; I10 Essential (primary) hypertension; J44.9 Chronic obstructive pulmonary disease, unspecified; E78.00 Pure hypercholesterolemia, unspecified; I25.10 Atherosclerotic heart disease of native coronary artery without angina pectoris; F17.210 Nicotine dependence, cigarettes, uncomplicated; Z01.810 Encounter for preprocedural cardiovascular examination; Z01.812 Encounter for preprocedural laboratory examination; Z79.02 Long term (current) use of antithrombotics/antiplatelets; Z79.82 Long term (current) use of aspirin; Z79.899 Other long term (current) drug therapy; Z99.81 Dependence on supplemental oxygen; Z95.5 Presence of coronary angioplasty implant and graft; Z85.118 Personal history of other malignant neoplasm of bronchus and lung
CPT/HCPCS: 36415; 43239; 43450; 85025; 93005; C9113; J2001; J2704; J3010; J7121